=== PATIENT | male | born 1995 | race Caucasian/White ===

== ENCOUNTER 2018-04-07 20:21 | Emergency (ER) | payer OTHER, SELFPAY ==
[2018-04-07 20:26] VITALS: BP 133/83; PULSE 64; RESP 16; TEMP 36.5; O2SAT 100
--- NOTE | 2018-04-07 20:29 | W.ED.GENAD ---
Discharge Plan Disposition Patient Disposition: HOME Condition: Stable Discharge Details Chief Complaint: Sorethroat Clinical Impression: Pharyngitis ED Provider: Lenny Bartlett Home Meds and New Rx's Prescriptions: New amoxicillin 500 mg tablet 500 mg PO TID Qty: 30 RF: 0 Discharge Instructions Instructions: Pharyngitis (ED) Additional Instructions: if not better in a week follow up with your [facility] center at your school you can take 1000mg tylenol and 600mg ibuprofen every 6 hours for pain as needed if you start having trouble breathing, or significant difficulty swallowing liquids or drooling return to the emergency department Medical Decision Making 23 yo male with no chronic medical problems comes in with sore throat since yesterday. Denies fevers, chills, dyspnea, stridor or difficulty swallowing. He has mild posterior pharynx erythema, midline uvula, no restricted neck movements and no pain over hyoid or submandibular swelling, speaking in full setnences with no stridor and appears well ssytemicaly. Suspect pharyngitis, will check for strep and if positive tx with abx. No findings to suggets rpa, preformer impregnated fabrics, epiglotitis at this time so do not feel labs or imaging indicated. Advised f/u with his [facility] if not better in a week and return if worsening Differential Diagnosis viral vs strep pharyngitis HPI General Mode of arrival: ambulatory. Date/Time Provider Initiated Documentation: 04/07/18 20:22. Limitations to Documentation: no limitations. Information obtained by: patient. History of Present Illness 23 year old M presents to the emergency department with the chief complaint of sore throat, described as moderate, No relieving factors improve symptom(s), No exacerbating factors reported . Patient notes no other symptoms.. Patient did receive the following treatments prior to arrival, none Related Data Home Medications Medication Instructions Recorded Confirmed amoxicillin 500 mg PO TID #30 tab 04/07/18 Previous Rx's Medication Instructions Recorded amoxicillin 500 mg PO TID #30 tab 04/07/18 General Stated Complaint: Sorethroat JAIRON: 4 Review of Systems Review of Systems All systems reviewed & are unremarkable except as noted in HPI and below Constitutional Denies chills and Denies fever(s) ENT Denies change in voice Cardiovascular Denies chest pain Gastrointestinal Denies abdominal pain, Denies nausea and Denies vomiting Integumentary/Breasts Denies rash PFSH Social History Smoking/Tobacco Use Status: Current every day Exam Const General: no acute distress Orientation: alert HENMT Head: normal to inspection Ears: external ears normal General nose exam: external nose normal Mouth: moist mucous membranes Eyes General: appearance normal, both eyes and all related structures Neck Neck: normal visual inspection Resp Effort & Inspection: normal respiratory effort and able to speak in complete sentences Cardio Rate: regular rate Skin General skin exam: no rashes or lesions noted Neuro General: alert and oriented x3 Extrem General: normal to inspection Psych Mental Status: mental status grossly normal Course Vital Signs Temperature 36.5 C 04/07/18 20:26 Pulse 64 04/07/18 20:26 Respiratory Rate 16 04/07/18 20:26 Blood Pressure 133/83 04/07/18 20:26 Pulse Oximetry 100 04/07/18 20:26 Temperature 36.5 C 04/07/18 20:26 Temperature Source Skin 04/07/18 20:26 Pulse 64 04/07/18 20:26 Respiratory Rate 16 04/07/18 20:26 Blood Pressure 133/83 04/07/18 20:26 Blood Pressure Position Sitting 04/07/18 20:26 Pulse Oximetry 100 04/07/18 20:26 Oxygen Delivery Method Room Air 04/07/18 20:26 Oxygen Flow Rate 0 04/07/18 20:26 Pain Level 3 04/07/18 20:26
--- NOTE | 2018-04-07 20:35 | ED.GENADUL_ITS ---
Discharge Plan Disposition Patient Disposition: HOME Condition: Stable Discharge Details Chief Complaint: Sorethroat Clinical Impression: Pharyngitis ED Provider: Lenny Bartlett Home Meds and New Rx's Prescriptions: New amoxicillin 500 mg tablet 500 mg PO TID Qty: 30 RF: 0 Discharge Instructions Instructions: Pharyngitis (ED) Additional Instructions: if not better in a week follow up with your health center at your school you can take 1000mg tylenol and 600mg ibuprofen every 6 hours for pain as needed if you start having trouble breathing, or significant difficulty swallowing liquids or drooling return to the emergency department Medical Decision Making 23 yo male with no chronic medical problems comes in with sore throat since yesterday. Denies fevers, chills, dyspnea, stridor or difficulty swallowing. He has mild posterior pharynx erythema, midline uvula, no restricted neck movements and no pain over hyoid or submandibular swelling, speaking in full setnences with no stridor and appears well ssytemicaly. Suspect pharyngitis, will check for strep and if positive tx with abx. No findings to suggets rpa, architectural project captain, epiglot itis at this time so do not feel labs or imaging indicated. Advised f/u with his [facility] if not better in a week and return if worsening Differential Diagnosis viral vs strep pharyngitis HPI General Mode of arrival: ambulatory . Date/Time Provider Initiated Documentation: 04/07/18 20:22 . Limitations to Documentation: no limitations . Information obtained by: patient . History of Present Illness 23 year old M presents to the emergency department with the chief complaint of sore throat, described as moderate, No relieving factors improve symptom(s), No exacerbating factors reported . Patient notes no other symptoms.. Patient did receive the following treatments prior to arrival, none Related Data Home Medications Medication Instructions Recorded Confirmed amoxicillin 500 mg PO TID #30 tab 04/07/18 Previous Rx's Medication Instructions Recorded amoxicillin 500 mg PO TID #30 tab 04/07/18 General Stated Complaint: Sorethroat JAIRON: 4 Review of Systems Review of Systems All systems reviewed & are unremarkable except as noted in HPI and below Constitutional Denies chills and Denies fever(s) ENT Denies change in voice Cardiovascular Denies chest pain Gastrointestinal Denies abdominal pain, Denies nausea and Denies vomiting Integumentary/Breasts Denies rash PFS Social History Smoking/Tobacco Use Status: Current every day Exam Const General: no acute distress Orientation: alert HENMT Head: normal to inspection Ears: external ears normal General nose exam: external nose normal Mouth: moist mucous membranes Eyes General: appearance normal, both eyes and all related structures Neck Neck: normal visual inspection Resp Effort & Inspection: normal respiratory effort and able to speak in complete sentences Cardio Rate: regular rate Skin General skin exam: no rashes or lesions noted Neuro General: alert and oriented x3 Extrem General: normal to inspection Psych Mental Status: mental status grossly normal Course Vital Signs Temperature 36.5 C 04/07/18 20:26 Pulse 64 04/07/18 20:26 Respiratory Rate 16 04/07/18 20:26 Blood Pressure 133/83 04/07/18 20:26 Pulse Oximetry 100 04/07/18 20:26 Temperature 36.5 C 04/07/18 20:26 Temperature Source Skin 04/07/18 20:26 Pulse 64 04/07/18 20:26 Respiratory Rate 16 04/07/18 20:26 Blood Pressure 133/83 04/07/18 20:26 Blood Pressure Position Sitting 04/07/18 20:26 Pulse Oximetry 100 04/07/18 20:26 Oxygen Delivery Method Room Air 04/07/18 20:26 Oxygen Flow Rate 0 04/07/18 20:26 Pain Level 3 04/07/18 20:26
[2018-04-07] MEDS: Amoxicillin 500 MG CAP PO (20:45)
[2018-04-07 20:49] VITALS: BP 133/83; PULSE 64; RESP 16; TEMP 36.5; O2SAT 100
== END 2018-04-07 20:50 | disposition home or self-care (01) ==
LOC: ER 20:50
PROVIDERS: Emergency Provider Emergency Medicine
DX: J02.9 Acute pharyngitis, unspecified (principal)
CPT/HCPCS: 87880; 99283

== ENCOUNTER 2020-01-19 17:06 | Outpatient (REF) | payer OTHER, SELFPAY ==
[2020-01-22 02:31] LABS: Patient Race White; SARS-CoV-2 Specimen Source Nasal
[2020-01-22 02:50] LABS: SARS-CoV-2 RNA Detected (Undetected)
== END 2020-01-19 17:26 ==
LOC: NCHCN 17:06
PROVIDERS: Visit Provider Nurse Practitioner Family
DX: Z20.828 Contact with and (suspected) exposure to other viral communicable diseases (principal)
CPT/HCPCS: U0003